=== PATIENT | female | born 1950 | race Caucasian/White ===

== ENCOUNTER 2019-10-16 05:33 | Emergency (ER) | payer OTHER ==
[~2019-10-16] VITALS: Ht 154.9 cm; Wt 68.0 kg
[~2019-10-16 05:33] MED LIST: CITRACAL + D E1 EACH; PROLIA60 MG/1 ML
== END 2019-10-16 08:58 | disposition home or self-care (01) ==
LOC: ER 05:33
DX: S00.83XA Contusion of other part of head, initial encounter (principal); W18.39XA Other fall on same level, initial encounter; Y93.89 Activity, other specified; Y92.091 Bathroom in other non-institutional residence as the place of occurrence of the external cause; Y99.8 Other external cause status